=== PATIENT | female | born 1955 | race Caucasian/White ===

== ENCOUNTER 2019-01-24 13:28 | Outpatient (RCR) | payer MEDICARE, SELFPAY ==
[2019-01-24 14:10] LABS: Prothrombin Time 21.8 Seconds (11.1-14.7)
[2019-01-24 14:15] LABS: Alanine Aminotransferase 46 U/L (4-35); Albumin Level 4.2 g/dL (3.5-5.1); Alkaline Phosphatase 53 U/L (38-126); Aspartate Amino Transferase 44 U/L (14-36); Bilirubin,Total 0.3 mg/dL (0.2-1.3); Blood Urea Nitrogen 14 mg/dL (7-17); Calcium 9.7 mg/dL (8.4-10.2); Carbon Dioxide 25 mmol/L (22-30); Chloride 105 mmol/L (98-107); Cholesterol 216 mg/dL (0-200); Estimated Glomerular Filt Rate > 60; Glucose 112 mg/dL (65-105); HDL Direct 36 mg/dL; Potassium 4.4 mmol/L (3.4-5.0); Sodium 140 mmol/L (137-145); Triglycerides 329 mg/dL (<150)
[2019-01-24 14:25] LABS: LDL Cholesterol Direct 109 mg/dL
[2019-01-24 14:27] LABS: Hemoglobin A1C 5.8 % (<5.7)
[2019-01-24 14:45] LABS: Thyroid Stimulating Hormone 0.693 uIU/mL (0.465-4.680)
[2019-01-24 14:58] LABS: Iron 57 ug/dL (37-170)
== END 2019-04-24 23:59 | disposition home or self-care (01) ==
LOC: ANHLAB 13:28
PROVIDERS: PCP Family Medicine; Visit Provider Family Medicine
DX: Z86.711 Personal history of pulmonary embolism (principal); Z86.718 Personal history of other venous thrombosis and embolism; E78.2 Mixed hyperlipidemia; R73.01 Impaired fasting glucose; E03.9 Hypothyroidism, unspecified; D51.0 Vitamin B12 deficiency anemia due to intrinsic factor deficiency
CPT/HCPCS: 36415; 80053; 80061; 83036; 83540; 84443; 85610

== ENCOUNTER 2019-03-10 15:24 | Outpatient (CLI) | payer MEDICARE, SELFPAY ==
[2019-03-10 16:40] LABS: Hematocrit 42.4 % (37.0-47.0); Hemoglobin 13.4 g/dL (12.0-15.0); Mean Corpuscular HGB Conc 31.6 g/dl (32-36); Mean Corpuscular Hemoglobin 27.6 pg (26-34); Mean Corpuscular Volume 87.2 fl (80-100); Mean Platelet Volume 10.4 fl (7.4-10.4); Platelet Count Result 278 k/mm3 (150-375); Red Blood Count 4.86 M/mm3 (4.2-5.4); Red Cell Distribution Width 14.6 % (11.5-14.5); White Blood Count 4.3 K/mm3 (4.5-10.0)
[2019-03-10 16:48] LABS: Hemoglobin A1C 5.9 % (<5.7)
[2019-03-10 16:52] LABS: Alanine Aminotransferase 53 U/L (4-35); Albumin Level 4.5 g/dL (3.5-5.1); Alkaline Phosphatase 54 U/L (38-126); Aspartate Amino Transferase 53 U/L (14-36); Bilirubin,Total 0.4 mg/dL (0.2-1.3); Blood Urea Nitrogen 13 mg/dL (7-17); Calcium 9.8 mg/dL (8.4-10.2); Carbon Dioxide 22 mmol/L (22-30); Chloride 101 mmol/L (98-107); Creatine Kinase 105 U/L (30-135); Estimated Glomerular Filt Rate > 60; Glucose 102 mg/dL (65-105); Magnesium 2.2 mg/dL (1.6-2.3); Sodium 136 mmol/L (137-145); Uric Acid 4.3 mg/dL (2.5-7.5)
[2019-03-10 16:58] LABS: Complement C3 151 mg/dL (88-165)
[2019-03-10 17:14] LABS: Erythrocyte Sedimentation Rate 10 mm/hr (0-20)
[2019-03-10 17:22] LABS: Thyroid Stimulating Hormone 0.631 uIU/mL (0.465-4.680)
[2019-03-10 17:28] LABS: Add Urine Microscopic? YES; Appearance Urine Clear (Clear); Bilirubin Urine Negative (Negative); Blood Urine 1+ (Negative); Color Urine Yellow (Yellow); Glucose Urine UA Negative (Negative); Ketones Urine Negative (Negative); Leukocyte Esterase Ur 3+ LEU/UL (NEGATIVE); Mucus Urine Rare /lpf; Nitrate Urine Negative (Negative); Protein Urine Negative (Negative); Specific Grav Ur 1.019 (1.001-1.035); Squamous Epithelial Cell Urine Rare /hpf (Few); Urobilinogen Urine Negative mg/dL (<2.0); WBC Urine >75 /hpf (0-3)
[2019-03-10 17:30] LABS: Free T4 Free Thyroxine 1.22 ng/mL (0.78-2.19)
[2019-03-10 17:34] LABS: Vitamin D 25 Hydroxy 37.1 ng/mL
[2019-03-10 17:57] LABS: Folic Acid 12.8 ng/mL (2.76->20)
[2019-03-10 18:18] LABS: Rheumatoid Factor < 8.6 IU/ML (<12)
[2019-03-13 02:31] LABS: Anti Cardio Antibody IgM <12 MPL (<=12); Anti Cardiolipin Antibody IgA <11 APL (<=11); Anti Cardiolipin Antibody IgG <14 GPL (<=14)
[2019-03-13 12:24] LABS: Complement Total CH50 >60 U/mL (31-60)
[2019-03-13 18:52] LABS: Anti Cyclic Citrullinated Pept <16 Units (<20)
[2019-03-14 20:45] LABS: Creatinine, Random Urine 121 mg/dL (20-275); Total Protein/Creatinine Ratio 58 mg/g creat (21-161)
[2019-03-16 04:24] LABS: Albumin 4.1 g/dL (3.8-4.8); Alpha 1 Globulin 0.3 g/dL (0.2-0.3); Alpha 2 Globulin 0.9 g/dL (0.5-0.9); Beta 1 Globulin 0.7 g/dL (0.4-0.6); Gamma Globulin 0.9 g/dL (0.8-1.7); Protein, Total 7.3 g/dL (6.1-8.1)
[2019-03-16 20:12] LABS: Scleroderma 70 Antibody <1.0
[2019-03-17 10:24] LABS: RNP Antibodies <1.0; SS-A 1.8; SS-B 7.5
[2019-03-17 21:24] LABS: Anti Nuclear Antibody Pattern Nuclear, Speckled
== END 2019-03-10 15:25 | disposition home or self-care (01) ==
LOC: ANHLAB 15:45
PROVIDERS: PCP Family Medicine; Visit Provider Internal Medicine Rheumatology
DX: M32.9 Systemic lupus erythematosus, unspecified (principal); G62.9 Polyneuropathy, unspecified; R53.83 Other fatigue; M19.90 Unspecified osteoarthritis, unspecified site; M79.10 Myalgia, unspecified site; E83.42 Hypomagnesemia; Z13.1 Encounter for screening for diabetes mellitus; R73.09 Other abnormal glucose; E55.9 Vitamin D deficiency, unspecified; E53.8 Deficiency of other specified B group vitamins; D50.9 Iron deficiency anemia, unspecified; Z51.81 Encounter for therapeutic drug level monitoring; R79.89 Other specified abnormal findings of blood chemistry; M25.50 Pain in unspecified joint
CPT/HCPCS: 36415; 80053; 81001; 82306; 82550; 82570; 82607; 82728; 82746; 83036; 83520; 83735; 84155; 84156; 84165; 84166; 84439; 84443; 84550; 85027; 85652; 86038; 86039; 86147; 86160; 86162; 86200; 86225; 86235; 86334; 86335; 86430

== ENCOUNTER 2019-03-13 14:57 | Outpatient (CLI) | payer MEDICARE, SELFPAY ==
--- NOTE | ~2019-03-13 | XR_ITS ---
XR ankle LT 2V, XR foot LT 2V 03/13/2019 16:05 Indication: Polyarticular joint pain Procedure: 2 views of the left ankle and 2 views of the left foot Comparison: No prior studies for comparison. Findings: There are small degenerative calcaneal enthesophytes. Ankle mortise intact. No abnormality of the talar dome. There is mild osteoarthritis of the first MTP and IP joints. Lisfranc joint intact . Normal mineralization. No erosive changes. No focal soft tissue abnormality. No radiopaque foreign bodies. 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 Reviewed, dictated and finalized at location A. 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
--- NOTE | ~2019-03-13 | XR_ITS ---
EXAMINATION: XR knee LT 2V DATE: 03/13/2019 16:05 INDICATION: Left knee joint pain. TECHNIQUE: 2 views of left knee were obtained. COMPARISON: None. FINDINGS: Bone alignment is normal. There is mild tricompartmental osteoarthritis. No knee joint effu saqib. IMPRESSION: 1. Mild left knee osteoarthritis. Reviewed, dictated and finalized at location A. DOOR WORKER
--- NOTE | ~2019-03-13 | XR_ITS ---
XR hip LT min 2V, XR hip RT min 2V 03/13/2019 16:05 Indication: Polyarticular joint pain Procedure: 2 views of each hip Comparison: No prior studies for comparison. Findings: Normal mineralization. No significant joint space narrowing. No erosive changes. No fractur e or traumatic malalignment. No significant soft tissue abnormality. Impression: 1: No significant abnormality of the hips. Reviewed, dictated and finalized at location A. ATCH CLERK Impression: 1: No significant abnormality of the hips. Impression: 1: No significant abnormality of the hips.
--- NOTE | ~2019-03-13 | XR_ITS ---
EXAMINATION: XR knee RT 2V DATE: 03/13/2019 16:05 INDICATION: Multiple joint pain. TECHNIQUE: 2 views of right knee were obtained. COMPARISON: None. FINDINGS: Bone alignment is normal. No fracture. There is mild tricompartmental osteoarthritis. No kn ee joint effusion. IMPRESSION: 1. Mild right knee osteoarthritis. Reviewed, dictated and finalized at location A. ONER HAND
--- NOTE | ~2019-03-13 | XR_ITS ---
EXAMINATION: XR wrist LT 2V DATE: 03/13/2019 16:05 INDICATION: Multiple joint pain. TECHNIQUE: 2 views of left wrist were obtained. COMPARISON: None. FINDINGS: Bone alignment is normal. No fracture. There is mild osteoarthritis of first carpometacarpa l joint. IMPRESSION: 1. Mild osteoarthritis of first carpometacarpal joint. Reviewed, dictated and finalized at location A. HER
--- NOTE | ~2019-03-13 | XR_ITS ---
EXAMINATION: XR shoulder LT min 2V DATE: 03/13/2019 16:05 INDICATION: Multiple joint pain. TECHNIQUE: 2 views of left shoulder were obtained. COMPARISON: None. FINDINGS: Bone alignment is normal. No fracture. Glenohumeral joint is normal. There is mild acromioc lavicular joint osteoarthritis. Surgical clips overlie the neck. IMPRESSION: 1. Mild acromioclavicular joint osteoarthritis. Reviewed, dictated and finalized at location A. IDE CUTTER HAND
--- NOTE | ~2019-03-13 | XR_ITS ---
XR hand LT 2V 03/13/2019 16:05 Indication: Polyarticular joint pain Procedure: 2 views left hand Comparison: No prior studies for comparison. Findings: There is mild osteoarthritis of the first carpometacarpal and MCP joints. Osteopenia. No fr acture or traumatic malalignment. No erosive changes. No significant soft tissue abnormality. There i s anatomic alignment. Impression: 1: Mild polyarticular osteoarthritis of the first digit. Reviewed, dictated and finalized at location A. E POLISHER Impression: 1: Mild polyarticular osteoarthritis of the first digit.
--- NOTE | ~2019-03-13 | XR_ITS ---
XR shoulder RT min 2V 03/13/2019 16:05 Indication: Polyarticular joint pain Procedure: 2 views right shoulder Comparison: No prior studies for comparison. Findings: Normal alignment. No fracture, subluxation or dislocation. No significant degenerative dixon ge. No soft tissue abnormality. Impression: 1: No significant bone or joint abnormality. Reviewed, dictated and finalized at location A. MATE Impression: 1: No significant bone or joint abnormality.
--- NOTE | ~2019-03-13 | XR_ITS ---
XR ankle RT 2V, XR foot RT 2V 03/13/2019 16:05 Indication: Polyarticular joint pain Procedure: 3 views right ankle and 2 views right foot Comparison: No prior studies for comparison. Findings: Small degenerative calcaneal enthesophytes. No fracture or traumatic malalignment. Ankle mo rtise intact. Talar dome within normal limits. There is moderate osteoarthritis of the first MTP join t and to a lesser degree the IP joint. No erosive changes. Normal mineralization. Impression: 1: Mild-moderate polyarticular osteoarthritis of the right first toe. Reviewed, dictated and finalized at location A. ING ATTENDANT Impression: 1: Mild-moderate polyarticular osteoarthritis of the right first toe. Impression: 1: Mild-moderate polyarticular osteoarthritis of the right first toe.
--- NOTE | ~2019-03-13 | XR_ITS ---
XR hand RT 2V, XR wrist RT 2V 03/13/2019 16:05 (accession [id number]), 03/13/2019 16:04 (accession [id number]) Indication: Polyarticular joint pain Procedure: 2 views right hand and right wrist Comparison: No prior studies for comparison. Findings: There is a healed fifth metacarpal fracture. Mild degenerative changes of the first CMC and MCP joints. No fracture or traumatic malalignment. There is a healed fracture of the fourth metacarp al. No acute fracture or traumatic malalignment. There are degenerative changes of the triscaphe join t. Impression: 1: Mild polyarticular osteoarthritis. Reviewed, dictated and finalized at location A. AL CARETAKER Impression: 1: Mild polyarticular osteoarthritis. Impression: 1: Mild polyarticular osteoarthritis.
== END 2019-03-13 14:58 | disposition home or self-care (01) ==
LOC: ANHIMG 15:01
PROVIDERS: Visit Provider Internal Medicine Rheumatology
DX: M19.041 Primary osteoarthritis, right hand (principal); M19.031 Primary osteoarthritis, right wrist; M19.042 Primary osteoarthritis, left hand; M19.071 Primary osteoarthritis, right ankle and foot; M19.072 Primary osteoarthritis, left ankle and foot; M19.011 Primary osteoarthritis, right shoulder; M17.0 Bilateral primary osteoarthritis of knee
CPT/HCPCS: 73030; 73100; 73120; 73502; 73560; 73600; 73620

== ENCOUNTER 2019-03-24 11:03 | Outpatient (CLI) | payer MEDICARE, SELFPAY ==
[2019-03-27 11:24] LABS: Hexagonal Phase Confirm Negative (Negative); Lupus dRVVT 1:1 Mix Interpreta Not Indicated; Lupus dRVVT Screen 38 sec (<=45); PTT-LA Screen 42 sec (<=40)
[2019-04-06 12:53] LABS: Hex Phase Conf Chg Test Yes
== END 2019-03-24 11:04 | disposition home or self-care (01) ==
PROVIDERS: Visit Provider Internal Medicine Rheumatology
DX: R79.89 Other specified abnormal findings of blood chemistry (principal); M32.9 Systemic lupus erythematosus, unspecified
CPT/HCPCS: 36415; 85598; 85613; 85730

== ENCOUNTER 2019-03-25 13:16 | Outpatient (CLI) | payer MEDICARE, SELFPAY | END 2019-03-25 13:17 | disposition home or self-care (01) | PROVIDERS: Visit Provider Internal Medicine Rheumatology | DX: M32.9 Systemic lupus erythematosus, unspecified (principal); R79.89 Other specified abnormal findings of blood chemistry | CPT/HCPCS: 36415; 86146 ==

== ENCOUNTER 2019-04-01 15:03 | Outpatient (CLI) | payer MEDICARE, SELFPAY ==
--- NOTE | ~2019-04-01 | MM_ITS ---
EXAMINATION: MM screening [facility] BI w [facility] HISTORY: Screening mammogram TECHNIQUE: Craniocaudal and mediolateral oblique 3-D tomosynthesis images were obtained and synthetic 2-D images were generated. CAD analysis was submitted and interpreted. COMPARISON: 04/03/2018, 05/16/2017, 05/04/2016, 04/18/2016 BREAST PARENCHYMAL COMPOSITION: The breasts are almost entirely fatty. FINDINGS: There is no evidence of suspicious mass, calcification, or architectural distortion to sugg est malignancy in either breast. There has been no suspicious interval change. IMPRESSION: 1. No mammographic evidence of malignancy. 2. Recommend routine screening mammography in one year. BI-RADS Category 1: Negative Reviewed, dictated and finalized at location A. HOLOGY INSTRUCTOR
--- NOTE | ~2019-04-01 | CT_ITS ---
EXAMINATION:CT lung screening DATE: 04/01/2019 15:48 INDICATION: Personal history of tobacco dependence. Smoker who quit 10 years ago with 40 pack year hi story. TECHNIQUE: Computed tomography (CT) of the chest was performed without intravenous contrast. Automate d exposure control and iterative reconstruction technique were employed. The dose-length product (DLP ) was 221.03 mGy-cm. COMPARISON: Chest CT 12/10/2017 FINDINGS: The lungs demonstrate mild atelectasis. There is a stable 4 mm nodule at right lung apex ab utting the pleura. No pleural effusion. There are surgical clips in the neck. The heart size is shaheen l. There are coronary artery calcifications. No pericardial effusion. There are surgical clips around the gastroesophageal junction. There is mild thoracic spondylosis and severe cervical spondylosis. IMPRESSION: 1. Lung-RADS category 2: Benign appearance or behavior. Continue annual screening with noncontrast lo w-dose chest CT in 12 months. Reviewed, dictated and finalized at location A. LE DOUBLER IMPRESSION: 1. Lung-RADS category 2: Benign appearance or behavior. Continue annual screeni ng with noncontrast low-dose chest CT in 12 months.
== END 2019-04-01 15:04 | disposition home or self-care (01) ==
LOC: ANHIMG 15:09
DX: Z12.31 Encounter for screening mammogram for malignant neoplasm of breast (principal); Z87.891 Personal history of nicotine dependence
CPT/HCPCS: 77063; 77067; G0297

== ENCOUNTER 2019-09-17 12:11 | Outpatient (CLI) | payer MEDICARE, SELFPAY ==
[2019-09-17 13:44] LABS: Hepatitis B Surface Antigen Negative (Negative)
[2019-09-17 14:01] LABS: Hepatitis B Surface Anti Res Negative; Hepatitis C Virus Antibody Negative (Negative)
[2019-09-21 05:49] LABS: Hepatitis B Core Ab Total Nonreactive (Nonreactive)
[2019-09-22 15:41] LABS: NIL 0.01 IU/mL; Quantiferon TB Plus, 1T NEGATIVE (NEGATIVE); TB2-NIL 0.01 IU/mL
== END 2019-09-17 12:12 | disposition home or self-care (01) ==
PROVIDERS: Visit Provider Internal Medicine Rheumatology
DX: Z11.59 Encounter for screening for other viral diseases (principal)
CPT/HCPCS: 36415; 86480; 86704; 86706; 86803; 87340; 87517

== ENCOUNTER 2019-09-30 12:01 | Outpatient (RCR) | payer MEDICARE, SELFPAY ==
[2019-10-02 17:00] LABS: Hepatitis B DNA PCR <1.00 Log IU/mL; Hepatitis B DNA PCR <10 IU/mL
[2019-10-03 22:17] LABS: NIL 0.01 IU/mL; Quantiferon TB Plus, 1T NEGATIVE (NEGATIVE)
== END 2019-12-29 23:59 | disposition home or self-care (01) ==
LOC: ANHLAB 12:01
PROVIDERS: Visit Provider Internal Medicine Rheumatology
DX: Z51.81 Encounter for therapeutic drug level monitoring (principal); Z11.59 Encounter for screening for other viral diseases
CPT/HCPCS: 36415; 86480; 87517

== ENCOUNTER 2019-12-16 12:30 | Outpatient (NON) | payer MEDICARE, SELFPAY ==
[2019-12-17 13:09] LABS: SARS-CoV-2 RNA PCR Negative
== END 2019-12-16 12:31 ==
LOC: ANHCOVIDDT 12:32
PROVIDERS: Visit Provider Family Medicine
DX: R09.89 Other specified symptoms and signs involving the circulatory and respiratory systems (principal); Z20.828 Contact with and (suspected) exposure to other viral communicable diseases
CPT/HCPCS: 87635; C9803; U0003

== ENCOUNTER 2020-06-17 08:06 | Outpatient (RCR) | payer MEDICARE, SELFPAY ==
[2020-03-31 10:20] LABS: Hematocrit 40.3 % (37.0-47.0); Hemoglobin 12.8 g/dL (12.0-15.0); Mean Corpuscular HGB Conc 31.8 g/dl (32-36); Mean Corpuscular Hemoglobin 28.8 pg (26-34); Mean Corpuscular Volume 90.8 fl (80-100); Platelet Count Result 257 k/mm3 (150-375); Red Blood Count 4.44 M/mm3 (4.2-5.4); Red Cell Distribution Width 15.2 % (11.5-14.5); White Blood Count 4.1 K/mm3 (4.5-10.0)
[2020-03-31 10:35] LABS: Anion Gap 6 mmol/L (8-16); Blood Urea Nitrogen 13 mg/dL (7-17); Calcium 9.2 mg/dL (8.4-10.2); Carbon Dioxide 28 mmol/L (22-30); Chloride 104 mmol/L (98-107); Estimated Glomerular Filt Rate > 60; Glucose 103 mg/dL (65-105); Potassium 4.4 mmol/L (3.4-5.0); Sodium 138 mmol/L (137-145)
[2020-03-31 10:41] LABS: Alanine Aminotransferase 69 U/L (4-35); Albumin Level 4.1 g/dL (3.5-5.1); Alkaline Phosphatase 63 U/L (38-126); Aspartate Amino Transferase 69 U/L (14-36); Bilirubin,Total 0.4 mg/dL (0.2-1.3)
[2020-06-17 08:31] LABS: Hematocrit 39.7 % (37.0-47.0); Hemoglobin 12.8 g/dL (12.0-15.0); Mean Corpuscular HGB Conc 32.2 g/dl (32-36); Mean Corpuscular Hemoglobin 29.6 pg (26-34); Mean Corpuscular Volume 91.7 fl (80-100); Mean Platelet Volume 10.4 fl (7.4-10.4); Platelet Count Result 266 k/mm3 (150-375); Red Blood Count 4.33 M/mm3 (4.2-5.4); Red Cell Distribution Width 17.2 % (11.5-14.5)
[2020-06-17 08:41] LABS: Alanine Aminotransferase 61 U/L (4-35); Albumin Level 4.5 g/dL (3.5-5.1); Alkaline Phosphatase 76 U/L (38-126); Anion Gap 7 mmol/L (8-16); Aspartate Amino Transferase 64 U/L (14-36); Bilirubin,Total 0.4 mg/dL (0.2-1.3); Blood Urea Nitrogen 12 mg/dL (7-17); Calcium 10.4 mg/dL (8.4-10.2); Carbon Dioxide 27 mmol/L (22-30); Chloride 103 mmol/L (98-107); Estimated Glomerular Filt Rate 55; Glucose 99 mg/dL (65-105); Sodium 137 mmol/L (137-145)
== END 2020-06-29 23:59 | disposition home or self-care (01) ==
LOC: ANHLAB 08:06
PROVIDERS: Visit Provider Internal Medicine Rheumatology
DX: Z51.81 Encounter for therapeutic drug level monitoring (principal); Z79.899 Other long term (current) drug therapy
CPT/HCPCS: 36415; 80048; 80076; 85027

== ENCOUNTER 2022-01-18 07:18 | Outpatient (CLI) | payer MEDICARE, SELFPAY ==
--- NOTE | ~2022-01-18 | NM_ITS ---
EXAMINATION: NM hepatobiliary wo pharm DATE: 01/18/2022 13:03 SEED TESTER INDICATION: Elevated lipase and abdominal pain COMPARISON: None. TECHNIQUE: 5 mCi Tc-99m mebrofenin (Choletec) was administered intravenously. Scintigraphic images o f the abdomen were obtained for one hour. At the 1 hour time point, the patient drank 8 oz Ensure, an d imaging was continued for 60 minutes. Gallbladder ejection fraction was calculated by the technolog ist. FINDINGS: There is normal clearance of radiotracer from the blood pool. There is homogeneous tracer u ptake by the liver. Activity progresses to the bowel and gallbladder. The gallbladder ejection fract ion is 85%. Note that with this technique, normal GBEF >= 33%. IMPRESSION: 1. Normal hepatobiliary scan. Reviewed, dictated and finalized at location A. TESTER
== END 2022-01-18 07:19 | disposition home or self-care (01) ==
PROVIDERS: PCP Family Medicine; Visit Provider Nurse Practitioner
DX: R74.8 Abnormal levels of other serum enzymes (principal)
CPT/HCPCS: 78226; A9537

== ENCOUNTER 2022-01-19 09:32 | Outpatient (CLI) | payer MEDICARE, SELFPAY ==
--- NOTE | ~2022-01-19 | US_ITS ---
US abdomen complete EXAMINATION: US Abdomen Complete INDICATION: Abnormal levels of serum enzymes. PROCEDURE: Realtime High Resolution abdomen ultrasound. COMPARISON: Nuclear hepatobiliary scan dated 01/18/2022 FINDINGS: Gallbladder within normal limits. No gallstones, pericholecystic fluid, gallbladder wall t hickening or biliary dilatation. Common bile duct measures 4 mm. Liver echotexture is diffusely increased, consistent with fatty infiltration.. Pancreas within shaheen l limits. Pancreatic tail is obscured by bowel gas. Spleen is unremarkeable. Renal echotexture is w ithin normal limits bilaterally without hydronephrosis, contour deforming mass or renal stone. Right kidney measures 12.1 cm. Left kidney measures 12.8 cm. Visualized aspects of the aorta and IVC are within normal limits. Portal vein is patent. No sonograph ic Douglas's sign indicated by the technologist. IMPRESSION: 1: Hepatic steatosis. Reviewed, dictated and finalized at location A. ET MECHANIC IMPRESSION: 1: Hepatic steatosis.
== END 2022-01-19 09:33 | disposition home or self-care (01) ==
LOC: ANHIMG 09:33
PROVIDERS: PCP Family Medicine; Visit Provider Nurse Practitioner Family
DX: R10.9 Unspecified abdominal pain (principal); R74.8 Abnormal levels of other serum enzymes; K76.0 Fatty (change of) liver, not elsewhere classified
CPT/HCPCS: 76700

== ENCOUNTER 2022-03-19 08:01 | Outpatient (CLI) | payer MEDICARE, SELFPAY ==
--- NOTE | ~2022-03-19 | MR_ITS ---
EXAMINATION: MR MRCP wo/w con/w 3D wo ind DATE: 03/19/2022 09:10 INDICATION: Elevated amylase and lipase TECHNIQUE: Magnetic resonance imaging (MRI) of the abdomen was performed without and with intravenous contrast. Sequences included coronal T2-weighted SS-FSE ARC, coronal T2-weighted FS SS-FSE, coronal T2-weighted 2D FS FIESTA, Water:Coronal LAVA-Flex, sagittal T2-weighted SS-FSE ARC, axial SSFSE ARC, axial 3D DualEcho, axial DWI B=600, axial T1-weighted LAVA, FAT:Coronal LAVA-Flex, and coronal in and opposed phase LAVA-Flex. Thick-slab T2-weighted FRFSE-XL images were obtained for magnetic resonance cholangiopancreatography (MRCP). Maximum intensity projection 3-D reconstructions of the volumetric data were created by the technologist. Postcontrast sequences included a time course of axial T1-weig hted LAVA, FAT:Coronal LAVA-Flex, coronal in and opposed phase LAVA-Flex, and Water:Coronal LAVA-Flex . COMPARISON: None. CONTRAST: Multihance, 20 cc FINDINGS: ABDOMEN MRI: There is loss of hepatic parenchymal signal on opposed phase imaging, consistent with he patic steatosis. The liver measures 26.2 cm in craniocaudal length. The spleen, gallbladder, pancreas , and adrenal glands are normal. There is a 1.4 cm cyst of the right kidney. The left kidney is unrem arkable. There are no pathologically enlarged abdominal lymph nodes. No dilated loops of bowel are pr esent. ABDOMEN MRCP: There is no intrahepatic or extrahepatic biliary dilatation. The pancreatic duct is nor mal in course and caliber. IMPRESSION: 1. Diffuse hepatic steatosis. 2. Hepatomegaly. Reviewed, dictated and finalized at location B. AND STOCKING IRONER
== END 2022-03-19 08:02 | disposition home or self-care (01) ==
PROVIDERS: PCP Family Medicine; Visit Provider Nurse Practitioner Family
DX: K76.0 Fatty (change of) liver, not elsewhere classified (principal); R16.0 Hepatomegaly, not elsewhere classified; R74.8 Abnormal levels of other serum enzymes
CPT/HCPCS: 74183; 76376; A9577

== ENCOUNTER 2022-07-17 00:52 | Day surgery (SDC) | payer MEDICARE, SELFPAY ==
[2022-07-06 15:16] VITALS: BMI 36.8
[2022-07-17 06:19] VITALS: BP 127/55; PULSE 75; RESP 20; TEMP 36.2; O2SAT 99
[2022-07-17] MEDS: LACTATED RINGERS 1,000 ML 150 ML IV CONT (06:49)
--- NOTE | 2022-07-17 07:24 | WPDANESEPPF ---
Anes - Initial Pre Proc Eval Procedure: Operation Date: 07/17/22 07:30 Proposed Procedures p Esophagogastroduodenoscopy With Deployment Of Givens Capsule - Benjie Tipton MD Date/Time: 07/17/22 07:24 Surgeon: Benjie Tipton MD Pre Op Diagnosis: Diarrhea,LOTUS,Abdominal Pain,other fecal abnormali Patient Data Age: 66 Gender: F Height: 1.7 m Weight: 109.1 kg Last Vital Signs Temp 36.2 C L 07/17/22 06:19 Pulse 75 07/17/22 06:19 Resp 20 07/17/22 06:19 BP 127/55 L 07/17/22 06:19 Pulse Ox 99 07/17/22 06:19 O2 Del Method Room Air 07/17/22 06:19 Allergies Allergy/AdvReac Type Severity Reaction Status Date / Time codeine Allergy Intermediate HIVES Verified 07/17/22 06:09 meperidine AdvReac Severe VOMITING Verified 07/17/22 06:09 Home Medications Medication Instructions Recorded Confirmed Type apixaban 5 mg tablet 5 mg PO BID 10/06/21 07/06/22 History atorvastatin 80 mg tablet 80 mg PO DAILY 10/06/21 07/06/22 History cyanocobalamin (vitamin B-12) 1,000 mcg IM MONTHLY 10/06/21 07/06/22 History 1,000 mcg/mL injection solution duloxetine 60 mg capsule,delayed 60 mg PO DAILY 10/06/21 07/06/22 History release lamotrigine 100 mg tablet 100 mg PO BID 10/06/21 07/06/22 History (Lamictal) lancets 10/06/21 06/12/22 History levothyroxine 100 mcg capsule 100 mcg PO DAILY 10/06/21 07/06/22 History meclizine 25 mg tablet 25 mg PO TID PRN Dizziness Or 10/06/21 07/06/22 History Vertigo pantoprazole 40 mg tablet,delayed 40 mg PO BID 10/06/21 07/06/22 History release prednisolone acetate 1 % eye 1 drp EACH EYE HS 10/06/21 07/06/22 History drops,suspension prochlorperazine maleate 10 mg 10 mg PO Q8H PRN Nausea And 10/06/21 07/06/22 History tablet Vomiting rimegepant 75 mg disintegrating 75 mg PO ONCE PRN Migraine Headache 10/06/21 07/06/22 History tablet (Nurtec ODT) primidone 250 mg tablet 125 mg PO BID 01/09/22 07/06/22 History hydroxychloroquine 200 mg tablet 400 mg PO DAILY #60 tabs 06/12/22 07/06/22 Rx (Plaquenil) cholestyramine (with sugar) 4 gram 4 g PO BID #60 ea 06/21/22 07/06/22 Rx powder for susp in a packet (Questran) cholecalciferol (vitamin D3) 25 1,000 unit PO DAILY 07/06/22 07/06/22 History mcg (1,000 unit) tablet (Vitamin D3) dicyclomine 20 mg tablet See Rx Instructions .Route 07/06/22 07/06/22 History .COMPLEX PRN Abdominal Pain ergocalciferol (vitamin D2) 1,250 50,000 unit PO MONTHLY 07/06/22 07/06/22 History mcg (50,000 unit) capsule folic acid 1 mg tablet 5 mg PO DAILY 07/06/22 07/06/22 History metformin 500 mg tablet 500 mg PO BID 07/06/22 07/06/22 History primidone 50 mg tablet 25 mg PO BID 07/06/22 07/06/22 History ropinirole 1 mg tablet 1 mg PO TID 07/06/22 07/06/22 History Patient hx anesthesia problems: none Family hx anesthesia problems: none Results Review: All pre-operative results and documents have been reviewed as part of the pre-operative evaluation. [facility] Past Medical History Medical History Abdominal pain Diarrhea Elevated antinuclear antibody (MISSY) level Elevated lipase Elevated liver enzymes Encounter for screening colonoscopy Hepatomegaly LOTUS (iron deficiency anemia) Nausea Sialadenitis Sjogren's syndrome without extraglandular involvement Surgical History Surgical History H/O: hysterectomy Family History Family History Mother Diabetes mellitus Heart disease Hypertension Father Stomach cancer Social History Social History Years smoked: 34 Smoking status: Former smoker Tobacco type: cigarettes Alcohol intake: current Drinks per week: 1 Alcohol use details: GLASS OF WINE Substance use: never Substance use type: does not use [facility]
--- NOTE | 2022-07-17 07:30 | PM.HPGS ---
History of Present Illness History of Present Illness Consent: Risks, benefits, and alternatives have been discussed and questions answered. Patient agrees to proceed with procedure. Chief complaint: Diarrhea,BRIDGET,Abdominal Pain,other fecal abnormali Narrative: Rose Mcgill is a 66 year old female with mild bridget, had egd and colonoscopy in 2021, no h pylori, no celiac disease. Here for egd with capsule endoscopy Review of Systems Constitutional: Constitutional: Denies headache(s) and Denies weakness Eyes: Eyes: Denies blurry vision ENT: Reports Normal hearing present, Denies headache(s) and Denies neck pain Cardiovascular: Cardiovascular: Denies chest pain and Denies dyspnea Respiratory: Respiratory: Denies dyspnea Gastrointestinal: Gastrointestinal: Reports no additional gastrointestinal complaints Genitourinary: Genitourinary: Denies dysuria Musculoskeletal: Musculoskeletal: Denies neck pain Integumentary/Breasts: Skin/Breast: Denies dry skin Neurologic: Reports Normal hearing present, Denies headache(s) and Denies weakness Psychiatric: Psychiatric: Denies anxiety Endocrine: Endocrine: Denies change in body appearance Hematologic/Lymphatic: Hematologic/Lymphatic: Denies easy bleeding Allergic/Immunologic: Allergic/Immunologic: Denies urticaria PMFSH Past Medical History Medical History Abdominal pain Diarrhea Elevated antinuclear antibody (MISSY) level Elevated lipase Elevated liver enzymes Encounter for screening colonoscopy Hepatomegaly BRIDGET (iron deficiency anemia) Nausea Sialadenitis Sjogren's syndrome without extraglandular involvement Surgical History Surgical History H/O: hysterectomy Family History Family History Mother Diabetes mellitus Heart disease Hypertension Father Stomach cancer Social History Social History Years smoked: 34 Smoking status: Former smoker Tobacco type: cigarettes Alcohol intake: current Drinks per week: 1 Alcohol use details: GLASS OF WINE Substance use: never Substance use type: does not use Living arrangements: with family Occupation/Education: retired Spiritual care concerns: No Meds Home Medications and Allergies Home Medications Medication Instructions Recorded Confirmed Type apixaban 5 mg tablet 5 mg PO BID 10/06/21 07/06/22 History atorvastatin 80 mg tablet 80 mg PO DAILY 10/06/21 07/06/22 History cyanocobalamin (vitamin B-12) 1,000 mcg IM MONTHLY 10/06/21 07/06/22 History 1,000 mcg/mL injection solution duloxetine 60 mg capsule,delayed 60 mg PO DAILY 10/06/21 07/06/22 History release lamotrigine 100 mg tablet 100 mg PO BID 10/06/21 07/06/22 History (Lamictal) lancets 10/06/21 06/12/22 History levothyroxine 100 mcg capsule 100 mcg PO DAILY 10/06/21 07/06/22 History meclizine 25 mg tablet 25 mg PO TID PRN Dizziness Or 10/06/21 07/06/22 History Vertigo pantoprazole 40 mg tablet,delayed 40 mg PO BID 10/06/21 07/06/22 History release prednisolone acetate 1 % eye 1 drp EACH EYE HS 10/06/21 07/06/22 History drops,suspension prochlorperazine maleate 10 mg 10 mg PO Q8H PRN Nausea And 10/06/21 07/06/22 History tablet Vomiting rimegepant 75 mg disintegrating 75 mg PO ONCE PRN Migraine Headache 10/06/21 07/06/22 History tablet (Nurtec ODT) primidone 250 mg tablet 125 mg PO BID 01/09/22 07/06/22 History hydroxychloroquine 200 mg tablet 400 mg PO DAILY #60 tabs 06/12/22 07/06/22 Rx (Plaquenil) cholestyramine (with sugar) 4 gram 4 g PO BID #60 ea 06/21/22 07/06/22 Rx powder for susp in a packet (Questran) cholecalciferol (vitamin D3) 25 1,000 unit PO DAILY 07/06/22 07/06/22 History mcg (1,000 unit) tablet (Vitamin D3) dicyclomine 20 mg tablet See Rx Instructions .Route 05
[2022-07-17 07:40] VITALS: BP 153/137; PULSE 77; RESP 16; O2SAT 99
[2022-07-17 07:50] VITALS: BP 95/48; PULSE 74; RESP 20; O2SAT 97
[2022-07-17 08:00] VITALS: BP 105/56; PULSE 73; RESP 20; O2SAT 97
--- NOTE | 2022-07-17 14:46 | SUR.PHASEII ---
Patient returned to the GI Lab at 1440 for recorder box removal. Patient voiced no complaints. States they have understanding of instructions. Patient left ambulatory.
== END 2022-07-17 08:14 | disposition home or self-care (01) ==
PROVIDERS: PCP Family Medicine; Visit Provider Internal Medicine Gastroenterology
PROC: 0DJ08ZZ Inspection of Upper Intestinal Tract, Via Natural or Artificial Opening Endoscopic (ICD-10-PCS; CPT 43235; principal; 2022-07-17 07:30)
DX: D50.9 Iron deficiency anemia, unspecified (principal); K31.7 Polyp of stomach and duodenum; M35.00 Sjogren syndrome, unspecified; Z79.01 Long term (current) use of anticoagulants; Z79.84 Long term (current) use of oral hypoglycemic drugs; Z87.891 Personal history of nicotine dependence; E66.9 Obesity, unspecified; Z68.37 Body mass index [BMI] 37.0-37.9, adult
CPT/HCPCS: 43235; J7120

== ENCOUNTER 2022-08-24 17:08 | Outpatient (CLI) | payer MEDICARE, SELFPAY ==
[2022-08-24 17:24] LABS: Hematocrit 43.7 % (35.0-42.0); Hemoglobin 14.5 g/dL (11.7-13.8); Mean Corpuscular HGB Conc 33.2 g/dL (32.0-36.0); Mean Corpuscular Hemoglobin 31.7 pg (27.0-31.0); Mean Corpuscular Volume 95.6 fL (78.0-102.0); Mean Platelet Volume 10.3 fl (9.2-11.8); Platelet Count Result 222 K/mm3 (150-420); Red Blood Count 4.57 M/mm3 (4.20-5.40); Red Cell Distribution Width 13.1 % (11.6-14.4); White Blood Count 3.7 K/mm3 (4.8-10.8)
[2022-08-24 18:26] LABS: Alanine Aminotransferase 38 U/L (14-59); Albumin Level 3.8 g/dL (3.4-5.0); Alkaline Phosphatase 88 U/L (46-116); Anion Gap 12 mmol/L (8-16); Aspartate Amino Transferase 37 U/L (15-37); Bilirubin,Total 0.3 mg/dL (0.00-1.00); Blood Urea Nitrogen 11 mg/dL (7-18); Carbon Dioxide 24 mmol/L (21-32); Chloride 105 mmol/L (98-108); Estimated Glomerular Filt Rate > 60; Glucose 141 mg/dL (70-99); Osmolality Calculated 293 mOsm/kg (285-295); Potassium 3.9 mmol/L (3.5-5.1); Sodium 141 mmol/L (136-145); Total Protein 7.2 g/dL (6.4-8.2)
[2022-09-03 15:22] LABS: Pancreatic Elastase, Stool 393 mcg/g
== END 2022-08-24 17:09 | disposition home or self-care (01) ==
LOC: CHSLAB 17:10
PROVIDERS: PCP Family Medicine; Visit Provider Nurse Practitioner Family
DX: R19.7 Diarrhea, unspecified (principal); R10.9 Unspecified abdominal pain
CPT/HCPCS: 36415; 80053; 82653; 85027; 87045; 87177; 87209; 87427; 87493